=== PATIENT | female | born 1985 | race Caucasian/White ===

== ENCOUNTER → 2016-05-25 | Outpatient (CLI) | payer OTHER ==
[~2016-05-25] MED LIST: AMOX500C3 PO; BIOT1TAB5 PO; BUPRTAB51 PO; BXN500 PO; CHOL400T PO; GLC500 PO; LANS30CA12 PO; LANS30CA63 PO; ONDA4TAB65 PO; PEDICHW50 PO; VNCS150 PO; VTMD PO
== END | disposition home or self-care (01) ==
LOC: C.LABSPEC 18:01
PROVIDERS: ATTEND Nurse Practitioner Family
DX: R10.2 Pelvic and perineal pain (principal)

== ENCOUNTER → 2016-06-21 | Outpatient (CLI) | payer OTHER ==
[2016-06-21 11:42] LABS: URINE APPEARANCE CLOUDY (CLEAR); URINE BILIRUBIN NEG (NEG); URINE COLOR DK YELLOW; URINE EPITHELIAL CELL AUTO >30 /lpf (0-5); URINE NITRITE NEG (NEG); URINE SPECIFIC GRAVITY 1.028 (1.000-1.030); UROBILINOGEN NEG (NEG)
[2016-06-21 11:45] LABS: MANUAL MICROSCOPIC REQUIRED? NO; REVIEW REQ? YES
== END | disposition home or self-care (01) ==
LOC: C.LABSPEC 11:09
PROVIDERS: ATTEND Obstetrics & Gynecology
DX: R39.9 Unspecified symptoms and signs involving the genitourinary system (principal)

== ENCOUNTER → 2016-06-21 | Outpatient (CLI) | payer OTHER | END | disposition home or self-care (01) | LOC: C.PAPS 11:47 | PROVIDERS: ATTEND Obstetrics & Gynecology | DX: Z01.419 Encounter for gynecological examination (general) (routine) without abnormal findings (principal) ==

== ENCOUNTER 2016-10-24 09:13 | Emergency (ER) | payer OTHER ==
[~2016-10-24] VITALS: Ht 152.4 cm; Wt 98.9 kg
[~2016-10-24 09:13] MED LIST changes: -BIOT1TAB5 PO; -BUPRTAB51 PO; -CHOL400T PO; -LANS30CA12 PO; -ONDA4TAB65 PO; -PEDICHW50 PO; -VNCS150 PO
[2016-10-24 09:17] VITALS: TEMP 36.7; Ht 152.4 cm; Wt 98.9 kg
[2016-10-24] MEDS ORDERED: ONDANSETRON INJ 2 MG/ML 2 ML VIAL IV STA (09:32)
[2016-10-24] MEDS ORDERED: SODIUM CHLORIDE 0.9% 1000ML 2,000 ML IV STA (09:32)
[2016-10-24] MEDS ORDERED: PEDICHW50 PO (09:40)
[2016-10-24] MEDS ORDERED: LANS30CA12 PO (09:40)
[2016-10-24] MEDS ORDERED: BUPRTAB51 PO (09:40)
[2016-10-24] MEDS ORDERED: CHOL400T PO (09:40)
[2016-10-24] MEDS ORDERED: BIOT1TAB5 PO (09:40)
[2016-10-24 10:21] LABS: BASO % 0.2 %; BASO ABS # 0.04 K/uL (0-0.2); COMPLETE YES; HEMATOCRIT 43.5 % (37-47); IG% 0.3 %; LYMPH % 13.5 %; MEAN CELL VOLUME 83.8 fL (80-100); MEAN CORPUSCULAR HEMOGLOBIN 26.8 pg (25-34); MEAN PLATELET VOLUME 10.9 fL (7.4-10.4); MONO % 8.1 %; NEUT % 76.9 %; PLATELET COUNT 343 K/uL (130-400); RED BLOOD COUNT 5.19 M/uL (4.2-5.4); WHITE BLOOD COUNT 16.27 K/uL (4.8-10.8)
[2016-10-24 10:41] LABS: BLOOD UREA NITROGEN 6 mg/dl (7-18); CARBON DIOXIDE 27 mmol/L (21-32); CHLORIDE 105 mmol/L (98-107); CREATININE 0.59 mg/dl (0.60-1.20); GLUCOSE 86 mg/dl (70-99); POTASSIUM 3.3 mmol/L (3.5-5.1); SODIUM 142 mmol/L (136-145)
[2016-10-24 10:44] LABS: ALKALINE PHOSPHATASE 67 U/L (45-117); ALT/SGPT 32 U/L (12-78); AST/SGOT 15 U/L (15-37)
--- NOTE | 2016-10-24 10:44 | DIAGNOSTIC IMAGING REPORT ---
PA CHEST WITH ABDOMINAL SERIES CLINICAL HISTORY: Generalized abdominal pain. FINDINGS: An AP, portable, upright chest radiograph is compared to study dated 09/16/2014. Correlation is made with chest CT dated 09/16/2014. The cardiomediastinal silhouette is unremarkable. The lungs and pleural spaces are clear. No pneumothorax is seen. The bony thorax is grossly intact. Supine and erect abdominal radiographs are correlated with abdominal CT dated 12/16/2015. There is a nonobstructed abdominal bowel gas pattern. Suture material projects over the stomach suggesting a history of gastric bypass surgery. No intraperitoneal free air is seen. There are no abnormal abdominal calcifications. Densities are noted in the pelvis and likely related to previous surgery. The lumbosacral spine and bony pelvis appear intact. IMPRESSION: 1. No active disease in the chest. 2. Nonobstructed abdominal bowel gas pattern. Suture material in the left upper quadrant suggests a history of gastric bypass. Correlation with the patient's surgical history will be required. 3. No intraperitoneal free air is seen. Electronically signed by: Hank Medeiros M.D. 10/24/2016 10:43 AM Dictated Date/Time: 10/24/2016 10:40 AM
[2016-10-24 11:23] LABS: URINE APPEARANCE CLEAR (CLEAR); URINE BILIRUBIN NEG (NEG); URINE COLOR YELLOW; URINE EPITHELIAL CELL AUTO >30 /lpf (0-5); URINE NITRITE NEG (NEG); URINE SPECIFIC GRAVITY 1.019 (1.000-1.030); UROBILINOGEN NEG (NEG); ZZUR CULT IF INDIC CLEAN CATCH NO
[2016-10-24 11:28] LABS: MANUAL MICROSCOPIC REQUIRED? NO; REVIEW REQ? NO
[2016-10-24] MEDS ORDERED: METRONIDAZOLE 250 MG TAB PO STA (11:47)
[2016-10-24] MEDS ORDERED: VANCOMYCIN HCL 125 MG/2.5ML SOLN PO STA (11:52)
[2016-10-24] MEDS ORDERED: ONDA4TAB65 PO (11:55)
[2016-10-24] MEDS ORDERED: VNCS150 PO (11:55)
[2016-10-24 12:09] VITALS: BP 139/83; PULSE 89; O2SAT 94
--- NOTE | 2016-10-24 14:04 | EMERGENCY ROOM VISIT NOTE ---
History Report prepared by Helen: Steven Graham Under the Supervision of: Dr. Nazario Hendrickson D.O. First contact with patient: 09:20 Chief Complaint: ABDOMINAL PAIN Stated Complaint: ABDOMINAL PAIN AND DIARRHEA Nursing Triage Summary: Pt states since last Sun diarrhea, nausea and lower abd pain. Pt states, "I'm now having irritation in upper abd when I have diarrhea. I went to the drs on Fri. and they did a stool sample, but I didnt get any results back yet." History of Present Illness The patient is a 30 year old female who presents to the Emergency Room with complaints of persistent diarrhea that started a week ago. She had gastric bypass surgery done in [place] 10 weeks ago. The patient states that sometimes when she goes to the bathroom, there is no stool, but there is just mucous in it. She says that she has a constant urge to go, and she has the diarrhea every 15 minutes or so. The patient states that she gets bad cramping abdominal pain with the diarrhea. She says that she gets nauseous instantly after eating or drinking, and she has diarrhea very quickly afterwards. The patient denies any vomiting however. She adds that she saw her primary care physician's office 2 days ago and had a stool sample done. She did not get any of the results back yet. The patient was on an antibiotic for pneumonia a month ago, but has not been on any antibiotics after that. She says that she tested positive for H. pylori before her gastric bypass surgery. The patient had blood in her stool 3 weeks ago, but denies any blood currently. She also denies any pain or burning with urination, or vaginal bleeding/discharge. The patient still has her gallbladder and appendix. Source of History: patient, spouse/significant other Onset: A week ago Position: other (global - diarrhea) Symptom Intensity: every 15 minutes Quality: other (cramping) Timing: other (persistent) Associated Symptoms: + nausea, No vomiting, No hematochezia, No urinary symptoms Note: Associated symptoms: Constant urge to have bowel movement. Review of Systems See HPI for pertinent positives & negatives. A total of 10 systems reviewed and were otherwise negative. Past Medical & Surgical Medical Problems: (1) Asthma, Unspecified, W (Acute) Exacerbation (2) Calculus Of Kidney (3) Endometriosis (4) Fem Pelvic Periton Adh-Post-Op/Inf (5) Obesity, Nos (6) Ovarian Cyst Nec/Nos (7) Tobacco Use Disorder Family History Diabetes mellitus FH: cancer FH: gallbladder disease FH: heart disease FH: lung disease Hypertension Kidney disease Kidney stones Social History Smoking Status: Never Smoker Alcohol Use: none Marital Status: Occupation Status: employed Current/Historical Medications Scheduled Biotin (Biotin), 1,000 MCG PO DAILY Bupropion (Wellbutrin-Xl), 300 MG PO DAILY Cholecalciferol (Vitamin D), 400 UNITS PO DAILY Lansoprazole (Prevacid), 30 MG PO DAILY Pediatric Multiple Vitamin W/ (Flintstones Chewable), 1 TAB PO QAM Vancomycin Hcl (Vancomycin Oral Susp *), 125 MG PO QID Scheduled PRN Ondansetron Hcl (Zofran), 1 TAB PO Q6H PRN for nausea Allergies Coded Allergies: POLLEN (Verified Allergy, Mild, ITHCY/WATERY EYES, 10/24/16) Dust (Verified Allergy, Unknown, ., 10/24/16) Grass (Verified Allergy, Unknown, ., 10/24/16) Nitrous Oxide (Verified Allergy, Unknown, SEVERE NAUSEA AND VOMITING, ) Acetaminophen (Verified Adverse Reaction, Intermediate, N/V AND SEVERE HEADACHE, 10/24/16) Adhesives (Verified Adverse Reaction, Intermediate, BLISTERS SKIN, 10/24/16 ) Oxycodone (Verified Adverse Reaction, Intermediate, NAUSEA, 10/24/16) Physical Exam Vital Signs Date Time Temp Pulse Resp B/P (MAP) Pulse Ox O2 Delivery O2 Flow Rate FiO2 10/24/16 12:09 89 18 139/83 94 10/24/16 11:09 85 16 125/72 95 Room Air 10/24/16 09:17 36.7 92 18 144/100 95 Room Air Physical Exam GENERAL: sitting up in bed, alert, well appearing, well nourished, no distress, non-toxic EYE EXAM: normal conjunctiva OROPHARYNX: no exudate, no erythema, lips, buccal mucosa, and tongue normal and mucous membranes are moist NECK: supple, no nuchal rigidity, no adenopathy, non-tender LUNGS: Clear to auscultation. Normal chest wall mechanics HEART: no murmurs, S1 normal and S2 normal ABDOMEN: Old incisions present. Abdomen soft, non-tender, normo-active bowel sounds, no masses, no rebound or guarding. BACK: Back is symmetrical on inspection and there is no deformity, no midline tenderness, no CVA tenderness. SKIN: no rashes and no bruising UPPER EXTREMITIES: upper extremities are grossly normal. LOWER EXTREMITIES: No pitting edema. NEURO EXAM: Normal sensorium, cranial nerves II-XII grossly intact, normal speech, no gross weakness of arms, no gross weakness of legs. Medical Decision & Procedures ER Provider Diagnostic Interpretation: X-ray results as stated below per my review and the radiologist's interpretation : PA CHEST WITH ABDOMINAL SERIES CLINICAL HISTORY: Generalized abdominal pain. FINDINGS: An AP, portable, upright chest radiograph is compared to study dated 09/16/2014. Correlation is made with chest CT dated 09/16/2014. The cardiomediastinal silhouette is unremarkable. The lungs and pleural spaces are clear. No pneumothorax is seen. The bony thorax is grossly intact. Supine and erect abdominal radiographs are correlated with abdominal CT dated 12/16/2015. There is a nonobstructed abdominal bowel gas pattern. Suture material projects over the stomach suggesting a history of gastric bypass surgery. No intraperitoneal free air is seen. There are no abnormal abdominal calcifications. Densities are noted in the pelvis and likely related to previous surgery. The lumbosacral spine and bony pelvis appear intact. IMPRESSION: 1. No active disease in the chest. 2. Nonobstructed abdominal bowel gas pattern. Suture material in the left upper quadrant suggests a history of gastric bypass. Correlation with the patient's surgical history will be required. 3. No intraperitoneal free air is seen. Electronically signed by: Hank Medeiros M.D. 10/24/2016 10:43 AM Dictated Date/Time: 10/24/2016 10:40 AM Laboratory Results 10/24/16 10:00 Red Blood Count 5.19, Mean Corpuscular Volume 83.8, Mean Corpuscular Hemoglobin 26.8, Mean Corpuscular Hemoglobin Concent 32.0, Mean Platelet Volume 10.9, Neutrophils (%) (Auto) 76.9, Lymphocytes (%) (Auto) 13.5, Monocytes (%) (Auto) 8.1, Eosinophils (%) (Auto) 1.0, Basophils (%) (Auto) 0.2, Neutrophils # (Auto) 12.50, Lymphocytes # (Auto) 2.20, Monocytes # (Auto) 1.32, Eosinophils # (Auto) 0.16, Basophils # (Auto) 0.04 10/24/16 10:00 Test 10/24/16 00:00 10/24/16 10:00 Urine Color YELLOW Urine Appearance CLEAR (CLEAR) Urine pH 6.0 (4.5-7.5) Urine Specific [place] 1.019 (1.000-1.030) Urine Protein NEG (NEG) Urine Glucose (UA) NEG (NEG) Urine Ketones 4+ (NEG) Urine Occult Blood NEG (NEG) Urine Nitrite NEG (NEG) Urine Bilirubin NEG (NEG) Urine Urobilinogen NEG (NEG) Urine Leukocyte Esterase MODERATE (NEG) Urine WBC (Auto) 5-10 /hpf (0-5) Urine RBC (Auto) 0-4 /hpf (0-4) Urine Hyaline Casts (Auto) 1-5 /lpf (0-5) Urine Epithelial Cells (Auto) >30 /lpf (0-5) Urine Bacteria (Auto) NEG (NEG) Urine Test NEG (NEG) White Blood Count 16.27 K/uL (4.8-10.8) Red Blood Count 5.19 M/uL (4.2-5.4) Hemoglobin 13.9 g/dL (12.0-16.0) Hematocrit 43.5 % (37-47) Mean Corpuscular Volume 83.8 fL (80-100) Mean Corpuscular Hemoglobin 26.8 pg (25-34) Mean Corpuscular Hemoglobin Concent 32.0 g/dl (32-36) Platelet Count 343 K/uL (130-400) Mean Platelet Volume 10.9 fL (7.4-10.4) Neutrophils (%) (Auto) 76.9 % Lymphocytes (%) (Auto) 13.5 % Monocytes (%) (Auto) 8.1 % Eosinophils (%) (Auto) 1.0 % Basophils (%) (Auto) 0.2 % Neutrophils # (Auto) 12.50 K/uL (1.4-6.5) Lymphocytes # (Auto) 2.20 K/uL (1.2-3.4) Monocytes # (Auto) 1.32 K/uL (0.11-0.59) Eosinophils # (Auto) 0.16 K/uL (0-0.5) Basophils # (Auto) 0.04 K/uL (0-0.2) RDW Standard Deviation 49.0 fL (36.4-46.3) RDW Coefficient of Variation 16.0 % (11.5-14.5) Immature Granulocyte % (Auto) 0.3 % Immature Granulocyte # (Auto) 0.05 K/uL (0.00-0.02) Anion Gap 10.0 mmol/L (3-11) Est Creatinine Clear Calc Drug Dose 148.5 ml/min Estimated GFR () 143.6 Estimated GFR (Non- 123.9 BUN/Creatinine Ratio 10.0 (10-20) Calcium Level 9.0 mg/dl (8.5-10.1) Total Bilirubin 0.4 mg/dl (0.2-1) Direct Bilirubin < 0.1 mg/dl (0-0.2) Aspartate Amino Transf (AST/SGOT) 15 U/L (15-37) Alanine Aminotransferase (ALT/SGPT) 32 U/L (12-78) Alkaline Phosphatase 67 U/L (45-117) Total Protein 7.4 gm/dl (6.4-8.2) Albumin 3.5 gm/dl (3.4-5.0) Lipase 86 U/L (73-393) Laboratory results per my review. Medications Administered Medications (Trade) Dose Ordered Sig/Caryn Route Start Time Stop Time Status Last Admin Dose Admin Sodium Chloride 2,000 ml @ 999 mls/hr Q2H1M STAT IV 10/24/16 09:32 10/24/16 11:32 DC 10/24/16 10:11 999 MLS/HR Ondansetron HCl (Zofran Inj) 4 mg NOW STAT IV 10/24/16 09:32 10/24/16 09:35 DC 10/24/16 09:32 4 MG Vancomycin HCl (Vancomycin Oral Soln) 125 mg NOW STAT PO 10/24/16 11:52 10/24/16 11:53 DC 10/24/16 12:12 125 MG ED Course ED COURSE: Vital signs were reviewed and showed normal vitals. The patients medical record was reviewed The above diagnostic studies were performed and reviewed. ED treatments and interventions as stated above. 0922: The patient was evaluated in room B6. A complete history and physical examination was performed. 0932: Ordered Zofran Inj 4 mg IV, NSS 2000 ml @ 999 mls/hr IV. 1147: Ordered Flagyl Tab 500 mg PO. 1152: Ordered Vancomycin Oral Soln 125 mg PO. 1156: Upon reevaluation, the patient is resting and was updated. I discussed my findings with the patient and she understands and agrees with the treatment plan. Based on the patients age, coexisting illnesses, exam and lab findings the decision to treat as an outpatient was made. The patient remained stable while under my care. The patient appeared well at the time of discharge. Medical Decision Differential diagnoses includes but is not limited to gastritis, peptic ulcer disease, GERD, gallbladder disease, pancreatitis, small bowel obstruction, acute coronary syndrome, pericarditis, ischemic bowel, irritable bowel disease, irritable bowel syndrome, appendicitis, diverticulitis, malignancy, hernia, urinary tract infection, torsion, /ectopic , perforation, trauma, infectious. Medication Reconciliation: I attest that I have personally reviewed the patient' s current medication list. Blood pressure screening: Patient was found to have normal blood pressure on screening and does not require follow-up. Patient is a 30-year-old female who presents the ER for diffuse abdominal cramping with persistent diarrhea that has been present since last Tuesday. Patient recently had gastric bypass surgery and has been on antibiotics within the past 2-3 months. Abdominal cramping does subside and returns following drinking or eating and is followed by persistent diarrhea. Patient notes that she is able to drink and eat without difficulty. Her abdominal exam is benign without signs peritonitis. Obstruction series shows no obvious obstruction. CBC shows a leukocytosis of 16,000 upon review of her chart she has a chronically elevated white count which tends to be around 12 of 14,000. Patient also confirms this and has been followed up by hematology. BMP along with LFTs, bilirubin and lipase was unremarkable. UA was contaminated with multiple epithelial cells. C. difficile resulted positive in Epic system. Patient was given 2 L normal saline along with Zofran. She was feeling slightly better. She was discharged on vancomycin with her white count being greater than 15,000. Discussed with Pt concerning signs and symptoms to watch out for. Pt was instructed to follow up with their PCP and discussed with the patient their option to return to the ED at anytime for persistent or worsening symptoms. The appropriate anticipatory guidance and out-patient management, including indications for return to the emergency department, were explained at length to the patient and understood. Impression Primary Impression: C. difficile diarrhea Scribe Attestation The scribe's documentation has been prepared under my direction and personally reviewed by me in its entirety. I confirm that the note above accurately reflects all work, treatment, procedures, and medical decision making performed by me. Departure Information Dispostion Home / Self-Care Prescriptions Ondansetron Hcl (ZOFRAN) 4 Mg Tab 1 TAB PO Q6H Y for nausea, #20 TAB 1 Refill Prov: Nazario Hendrickson, DO 10/24/16 Vancomycin Hcl (Vancomycin Oral Susp *) 150 Mg/3 Ml Susp 125 MG PO QID for 14 Days Prov: Nazario Hendrickson, DO 10/24/16 Referrals Olaf Tan M.D. (PCP) Patient Instructions Clostridium Difficile Infec, My [facility] Additional Instructions Please follow up with your primary care doctor with in the next 24 hours. Any worsening of your symptoms, please return to the ED immediately. This includes worsening pain, blood in your stool, passing out, unable to eat or drink, unable to take the antibiotics, or any other concerning signs or symptoms from your standpoint. Please take the antibiotics as prescribed. Please use Zofran as needed for nausea.
== END 2016-10-24 12:11 | disposition home or self-care (01) ==
LOC: C.EDB 09:14
DX: A04.7 Enterocolitis due to Clostridium difficile (principal); R19.7 Diarrhea, unspecified; R10.9 Unspecified abdominal pain; R11.0 Nausea; Z98.84 Bariatric surgery status; J45.909 Unspecified asthma, uncomplicated; Z79.899 Other long term (current) drug therapy; Z87.42 Personal history of other diseases of the female genital tract; Z87.442 Personal history of urinary calculi; Z82.49 Family history of ischemic heart disease and other diseases of the circulatory system; Z83.3 Family history of diabetes mellitus; Z83.6 Family history of other diseases of the respiratory system; Z83.79 Family history of other diseases of the digestive system; Z84.1 Family history of disorders of kidney and ureter

== ENCOUNTER → 2017-06-22 | Outpatient (CLI) | payer OTHER ==
[~2017-06-22] MED LIST changes: -AMOX500C3 PO; +BIOT1TAB5 PO; +BUPRTAB51 PO; -BXN500 PO; +CHOL400T PO; -GLC500 PO; +LANS30CA12 PO; -LANS30CA63 PO; +ONDA4TAB65 PO; +PEDICHW50 PO; +VNCS150 PO; -VTMD PO
== END | disposition home or self-care (01) ==
LOC: C.PAPS 13:32
PROVIDERS: ATTEND Obstetrics & Gynecology
DX: Z12.4 Encounter for screening for malignant neoplasm of cervix (principal)